=== PATIENT | male | born 1970 | race Caucasian/White ===

== ENCOUNTER 2020-05-04 07:59 | Emergency (ER) | payer OTHER ==
[~2020-05-04] VITALS: Ht 182.9 cm; Wt 106.6 kg
[~2020-05-04 07:59] MED LIST: HYDROCHLOROTHIA25 MG PO
[2020-05-04] MEDS ORDERED: MOTION SICKNESS25 M4 PO (08:16)
--- NOTE | 2020-05-04 09:32 | EKG ---
[facility] [address] [place], [place] [address] Signed Normal sinus rhythm Nonspecific ST and T wave abnormality Abnormal ECG No previous ECGs available Confirmed by SANCHEZ MALONEY MD ([id number]) on 05/04/2020 9:32:47 AM Electronically Signed By: SANCHEZ MALONEY MD 05/04/20 0932 PATIENT NAME: VINICIO YIMIRAMAN Electrocardiogram DATE OF : 70 PHYSICIAN: SANCHEZ MALONEY MD REPORT #: [id number] REPORT IS CONFIDENTIAL AND NOT TO BE RELEASED WITHOUT AUTHORIZATION
== END 2020-05-04 10:03 | disposition home or self-care (01) ==
LOC: ED 07:59
DX: K92.2 Gastrointestinal hemorrhage, unspecified (principal); R07.89 Other chest pain; D64.9 Anemia, unspecified; F17.200 Nicotine dependence, unspecified, uncomplicated; Z79.899 Other long term (current) drug therapy
CPT/HCPCS: 71045; 80053; 82728; 83540; 83735; 84466; 84484; 85025; 86850; 86900; 86901; 93005; 93010; 99285-25; 99406

== ENCOUNTER 2020-05-05 20:45 | Observation (INO) | payer OTHER ==
[~2020-05-05] VITALS: Ht 182.9 cm; Wt 105.2 kg
[~2020-05-05 20:45] MED LIST changes: +MOTION SICKNESS25 M4 PO
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
--- NOTE | 2020-05-06 01:45 | NUR ---
PATIENT ARRIVED TO THE FLOOR VIA STRETCHER. PATIENT AMBULATED FROM STRETCHER TO BED. ADMISSION COMPLETED BY THALIA BALDERAS. PATIENT DENIES ANY PAIN OR NAUSEA. PATIENTS ABD MILD DISTENDED PER PATIENT. PATIENT HAS NO ORDERS AT THIS TIME. PATIENTS IS PRESENT IN THE ROOM. NO NEEDS NOTED. THALIA RN REMAINS IN THE ROOM.
--- NOTE | 2020-05-06 02:24 | NUR ---
PLACED CALL TO MD. NEW ORDERS RECEIVED. VERIFIED NEW ORDERS USING THE READBACK METHOD. IV INFUSING PER ORDER. EDUCATED PATIENT ON DIET STATUS CHANGE. PATIENT VERBALIZES UNDERSTANDING. PATIENTS SCHEDULED MEDICATIONS GIVEN PER ORDER. NO FURTHER NEEDS NOTED. CALL LIGHT IN REACH.
--- NOTE | 2020-05-06 04:24 | NUR ---
PATIENT IS RESTING IN BED WITH EYES CLOSED, RR 19. CALL LIGHT IN REACH.
--- NOTE | 2020-05-06 05:02 | NUR ---
PATIENT HAS RESTED WELL SINCE ARRIVING TO THE FLOOR. PATIENT IS ON RA. PATIENT IS ON CLEARS, TOLERATING WELL, NO NAUSEA NOTED. PATIENT HAS DENIED PAIN. PATIENT IS INDEPDENT IN THE ROOM. PATIENT HAS HAD NO BMS. PATIENT HAS IV INFUSING PER ORDER. PATIENT IS AAOX4. [facility]
--- NOTE | 2020-05-06 05:18 | NUR ---
PATIENTS VITALS TAKEN AND RECORDED. INTAKE AND OUPUT RECORDED. PATIENT DENIES ANY PAIN OR NAUSEA. URINAL EMPTIED. WATER REFILLED. IS ASLEEP ON THE COUCH. PATIENT DENIES ANY NEEDS. CALL LIGHT IN REACH.
--- NOTE | 2020-05-06 07:13 | NUR ---
emptied urinal 900 ml. patient denies further needs at this time.
--- NOTE | 2020-05-06 07:30 | NUR ---
SHIFT REPORT FROM GHASSAN BALDERAS INCLUDED: pt here for rectal bleeding. pt able to rest most of the night. pts at bedside. pt has PRN meds availible. pt currently in bed, breathing even and unlabored. table and call light within reach.
--- NOTE | 2020-05-06 07:50 | NUR ---
Spoke with pt's SO and mom. He is sleeping. SO states they live in [place] in a 1 story home with 5 steps. No hand rails. He has not any problems with the steps. Does not use any DME. He is active and works at [employer] for the state of [employer]. Pt awakens and finishes answering questions. They do not have financial issues. He drives. He is awaiting a consult from Dr. De Luna. So other states pt 23 yo son is insisting he visit today. Updated he will not be let in. Explained [facility] rules and notified I can set them up with a tablet for face time. Pt states he will message son on face book and let him know he can visit tomorrow. Pt plans on dc to home when cleared medically.
[2020-05-06] MEDS ORDERED: ATORVASTATIN CA40 MG PO (08:20)
--- NOTE | 2020-05-06 09:15 | NUR ---
ROUNDING pt in bed, visiting with and mother at this time. table and call light within reach.
--- NOTE | 2020-05-06 10:10 | NUR ---
ASSESSMENT pt assessment complete, VSS. pt denies dizziness. pt verbalized understanding of making his doctors aware of things like this earlier in the future. pt denies pain and nausea at this time. pt in bed, table and call light within reach. and mother at bedside.
[2020-05-06] MEDS ORDERED: CLARITIN-D 241 EACH PO (10:21)
[2020-05-06] MEDS ORDERED: MELATONIN10 M5 PO (10:22)
[2020-05-06] MEDS ORDERED: ACETAMINOPHEN-1 EACH PO (10:22)
--- NOTE | 2020-05-06 10:23 | NUR ---
MED REC COMPLETE
--- NOTE | 2020-05-06 11:00 | NUR ---
ROUNDING pt finishing up his second bowel prep gatorade drink from pharmacy. pt instructed to call when he is able to have a BM and to not flush the toilet after, so we can assess and document it. pt agrees. pt denies pain and nausea at this time. pt in bed, table and call light within reach. and mother at bedside.
--- NOTE | 2020-05-06 12:00 | NUR ---
ROUNDING pt completed his bowel prep drinks, and ordered a clears tray for lunch, the kitchen was asked specifically to NOT include anything red or orange in color. pt denies needs at this time and denies pain and nausea. table and call light within reach.
--- NOTE | 2020-05-06 13:30 | NUR ---
ROUNDING pt visiting with his and mother at this time. pt denies pain and nausea at this time. pt denies needs. table and call light within reach.
--- NOTE | 2020-05-06 14:30 | NUR ---
SPOKE TO DR MALONEY AT THIS TIME + NEW ORDERS pt has been up to toilet x2 and had nannette red blood in the toilet in what might be moderate-large amounts. pt denies dizziness and has remained A&O x4, denying pain, nausea, and fatigue at this time. VSS. However, pt will likely be up to empty bowels more during the night due to bowel prep for tomorrow's procedures, so this RN requested H&H be drawn and tested sometime before tomorrow. Dr Maloney agreed and gave verbal orders to check labs tonight at 1800. orders put into the computer.
--- NOTE | 2020-05-06 14:49 | NUR ---
PT ALERT, ORIENTED AND SUPPORTED BY HIS MOTHER NICHOLE AND G.FRIEND JOSIAH. PT FEELS INFORMED, CLEAR BOUT SURGERY. AND SEEMS TO BE INFORMED. PT IS QUITE THE JOKESTER. PT FEELS INFORMED, ALL QUESTIONS ASKED ANSWERED GAVE BLESSING AND WILL FOLLOW
--- NOTE | 2020-05-06 15:30 | NUR ---
ROUNDING pt watching tv alone in the room at this time. pt denies pain and nausea at this time. pt denies needs. table and call light within reach.
--- NOTE | 2020-05-06 16:17 | NUR ---
MED PASS pt up to bathroom at this time. and mother no longer in the room at this time. pt back to bed. pt able to take med as ordered without difficulty. pt denies pain and nausea at this time. pt denies dizziness and has no obvious changes in LOC. pt in bed, table and call light within reach.
--- NOTE | 2020-05-06 16:19 | NUR ---
pt had bowel prep done today and completed both bottles. pt has been up to have BMs several times today. pt is independent in the room and has been denying dizziness. pt has been having nannette red blood in his stool for weeks now. pt has two units of PRBCs ordered and ready to go IF needed. pt getting another H&H lab at 1800 tonight to monitor labs. pt anticipating endoscopy and colonoscopy tomorrow. pt should be NPO at midnight, has been voiding sufficiently and tolerating clears diet today.
--- NOTE | 2020-05-06 16:21 | CONS ---
[facility] [address] [place], [place] [address] Signed DATE OF CONSULTATION: 05/06/2020 CHIEF COMPLAINT: Bright red blood per rectum. HISTORY OF PRESENT ILLNESS: Raman is a 49-year-old gentleman who lives in [place], [place]. 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 He said he has had rectal bleeding probably 6 months, but it has certainly gotten worse the last few weeks. He started to get dizzy and lightheaded. He came to emergency room two days ago for evaluation. He was given 2 units of packed red blood cells and asked to follow up with GI. He continued to have rectal bleeding and he feels like it is fairly significant, so he came back to the emergency room. His hemoglobin is currently 9.7. His mean cell volume is low at 77. BUN is normal at 17. Liver function test, INR and albumin all fine. COVID is negative. He describes a rectal exam by the ER doctor, but does not know any more than that. He has been admitted to the Internal Medicine Service. I have been asked to see him for consideration of upper and lower endoscopy after bowel prep today. In the meantime, he has remained hemodynamically stable. PAST MEDICAL HISTORY: Meniere disease, hemorrhoids and chronic constipation. PAST SURGICAL HISTORY: None. SOCIAL HISTORY: He quit smoking. He does not drink. He is to his , Alexandra at [phone]. He prefers the [facility] pharmacy. He does maintenance for the [employer]. They have three children. Myrtle Holden is his nurse practitioner in [place]. FAMILY HISTORY: His father of an PR at 45. His maternal uncle had rectal cancer. REVIEW OF SYSTEMS: He had 10 systems reviewed and there were no new findings. ALLERGIES: None. MEDICATIONS: Hydrochlorothiazide 25 mg p.o. p.r.n. and meclizine p.r.n. PHYSICAL EXAMINATION: Electronically Signed By: LUBNA SIMPSON MD 05/06/20 1621 PATIENT NAME: RAMAN MERRILL CONSULTATION DATE OF : 70 REPORT #: [id number] PHYSICIAN: LUBNA SIMPSON MD PCP: MYLES KIM MD REPORT IS CONFIDENTIAL AND NOT TO BE RELEASED WITHOUT AUTHORIZATION [facility] [address], [place] [address] Signed VITAL SIGNS: Blood pressure 139/86, heart rate 84, respiratory rate 20, temperature is 97.6. He is 100% on room air. He is 6 feet tall at 105 kg. GENERAL: Raman is a 49-year-old gentleman who appears healthy and at his stated age. His mother is in the room. He does not appear significantly ill or toxic. He is not pale. He has actually got good energy and is a good historian. LUNGS: Clear to auscultation bilaterally. HEART: Regular rate and rhythm without murmurs. ABDOMEN: Moderately protuberant and soft. RECTAL: Not repeated currently. LABORATORY DATA: His white blood count is 8.0, hemoglobin is up to 9.7 after 2 units of packed red blood cells, mean cell volume 77, platelets 325, BUN 17, creatinine 1.03. Liver function tests are negative, albumin 3.8. His coags are negative and the COVID test is negative. RADIOGRAPHIC STUDIES: None. ASSESSMENT/PLAN: Raman is a 49-year-old gentleman who presents with lifelong constipation and his maternal uncle had rectal cancer as well. Raman had rectal bleeding, it sounds like for at least 6 months, but certainly worse for the last few weeks. He has required a couple units of packed red blood cells. He has been admitted and was given IV fluids, clear liquid diet and his bowel prep. We will plan on adding him on tomorrow for his upper and lower endoscopies. I have reviewed upper and lower endoscopy with him in detail. His mother explained she has undergone colonoscopy and she is familiar with the process. We also reviewed the need for IV conscious sedation. They have expressed understanding and would like to proceed tomorrow. Lubna Simpson MD ALB/MODL /[id number] cc: WAYNE eBrg Copies: MYRTLE HOLDEN Electronically Signed By: LUBNA SIMPSON MD 05/06/20 1621 PATIENT NAME: RAMAN MERRILL CONSULTATION DATE OF : 70 REPORT #: [id number] PHYSICIAN: LUBNA SIMPSON MD PCP: MYLES KIM MD REPORT IS CONFIDENTIAL AND NOT TO BE RELEASED WITHOUT AUTHORIZATION [address] [address] Signed ~ Electronically Signed By: LUBNA SIMPSON MD 05/06/20 1621 PATIENT NAME: VINICIO YIMIRAMAN CONSULTATION DATE OF : 70 REPORT #: [id number] PHYSICIAN: LUBNA SIMPSON MD PCP: MYLES KIM MD REPORT IS CONFIDENTIAL AND NOT TO BE RELEASED WITHOUT AUTHORIZATION
--- NOTE | 2020-05-06 19:28 | NUR ---
in bed, awake, plasant, lab in oom, no c/o pain, aware of NPO after midnight. call light at bedside, fresh iced water and warm blanket given
--- NOTE | 2020-05-06 20:24 | NUR ---
COOP WITH ASSESSMENT, AWAKE, ALERT AND ORIENTED, NO RECTAL BLEEDING AT THIS TIME. CALLS APPROPRIATELY. TOLERATING LARGE AMOUNTS OF FLUIDS WELL, VOIDING QS. SL LAC AND IVF INFUSING RAC
--- NOTE | 2020-05-06 22:45 | NUR ---
IN TO CHECK ON PT, PT IS ADLIB IN RM/TO THE BM, NO FURTHER NEEDS
--- NOTE | 2020-05-07 00:22 | NUR ---
RESTING, TURNS SELF IN BED, IVF INFUSING, INDEPENDENT IN ROOM, HAD BROWN LIQUID BM, USES URINAL, VOIDING LARGE AMOUNTS OF CLEAR URINE. NPO AFTER MIFNIGHT. CALL LIGHT AT BEDSIDE
--- NOTE | 2020-05-07 02:10 | NUR ---
IN TO GET VITALS, PT STATES UP TO THE BR A FEW TIMES, PT BACK TO RESTING, NPO STATUS @ 0000, NO FURTHER NEEDS AT THIS TIME
--- NOTE | 2020-05-07 04:23 | NUR ---
AWAKES EASILY, NO C/O PAIN. ICE PACK FOR HEMORROIDS GIVEN ONREQUESTS, NPO SINCE MIDNIGHT, DOES OWN MOUTH CARE. VOIDING QS. IVF INFUSING, FEMALE WOLF IN ROOM
--- NOTE | 2020-05-07 06:03 | NUR ---
PT ALERT AND ORIENTED, INDEPENDENT IN ROOM. HAS HAD SEVERAL LIQUID BM, NO BLOOD NOTED THIS SHIFT. VOIDING QS. HAS BEEN NPO SINCE MIDNIGHT, DOES OWN MOUTH CARE. SL PATENT, IVF INFUSING W/O PROBLEMS. NO C/O N/V OR PAIN. ICE GIVEN ON REQUESTS TO BUTTOCKS AREA HE STATED 'I HAVE SOME REALLY BAD HEMORROIDS THAT THEY ARE CURRENLTY BOTHERING ME'. PT SCHEDULED TO HAVE AN EGD/COLONOSCOPY TODAY. FEMALE FRIEND IN ROOM
--- NOTE | 2020-05-07 06:20 | NUR ---
IN TO GET VITALS, PT REMAINS NPO STATUS AT THIS TIME, NO FURTHER NEEDS, RN IN RM TO SETUP PRE OP IV NEEDS,
--- NOTE | 2020-05-07 07:10 | NUR ---
SHIFT REPORT FROM KIRSTEN RN INCLUDED: pt had an uneventful evening. VSS, pt has been having several bowel movements, as expected after bowel prep. pt currently resting in bed, table and call light within reach. breathing even and unlabored.
--- NOTE | 2020-05-07 08:30 | NUR ---
ROUNDING pt in chair, watching tv at this time. pt denies needs. table and call light within reach.
--- NOTE | 2020-05-07 10:00 | NUR ---
ASSESSMENT + MED PASS pt in chair at this time. pt assessment complete, VSS. pts last 5 or so BMs have been brown and without nannette red blood in them according to pt. pt able to get one med as ordered, no difficulty. pt given ice pack for his bottom where he reports he is sore. pt in chair, with ice and pillows for comfort, table and call light within reach.
--- NOTE | 2020-05-07 10:30 | NUR ---
Spoke with pt and SO. They deny needs. Cont. to plan on dc to home.
--- NOTE | 2020-05-07 11:14 | NUR ---
ROUNDING pt in chair, visiting with at this time. pt denies pain and nausea. table and call light within reach.
--- NOTE | 2020-05-07 11:50 | NUR ---
PATIENT OFF THE UNIT FOR IMAGING AT THIS TIME
--- NOTE | 2020-05-07 12:43 | NUR ---
PT ALERT, ORIENTED AND VISITING WITH HIS G.FRIEND. PT IS TO HAVE EGD AND SCOPE LATER THIS PM. PT UPBEAT, ALL QUESTIONS ASKED ANSWERED. PT OKAY IF HE HAS TO GO STRAIGHT TO SURGERY FROM SCOPES. PT REQUESTED PRAYER, WILL FOLLOW
--- NOTE | 2020-05-07 13:08 | NUR ---
05/07/20 1308 Radha Alvarado 1304- PT ARRIVES TO PACU NONAROUSABLE TO NOXIOUS STIMULI WITH AN OPA IN PLACE. RESP EVEN AND UNLABORED. OXYGEN SAT HIGH 90'S TO 100% ON 10L VIA MASK. PT PASSING LARGE AMOUNTS OF FLATUS. 1308- OXYGEN TITRATED DOWN TO 6L VIA MASK.
--- NOTE | 2020-05-07 13:40 | NUR ---
PATIENT ARRIVES BACK TO THE FLOOR AT THIS TIME pt back in room, and steady gait and ambulatory. pt VSS. pt denies pain and nausea at this time. pt in chair, table and call light witin reach.
[2020-05-07] MEDS ORDERED: PANTOPRAZOLE SO40 MG PO (14:51)
[2020-05-07] MEDS ORDERED: PROCTO-MED HC28 GM TOP (14:53)
--- NOTE | 2020-05-07 15:00 | NUR ---
PATIENT DC AT THIS TIME pt VSS, denies pain and nausea at this time. pt IVs pulled, catheters intact, no excess bleeding noted. pt and verbalize understanding of DC instructions, meds, and follow up care plans. pharmacy meeting with pt at this time.
--- NOTE | 2020-05-07 15:44 | OR ---
[facility] [address] [place], [place] [address] Signed DATE OF OPERATION: 05/07/2020 SURGEON: Lubna Simpson MD PREOPERATIVE DIAGNOSES: 1. Rectal bleeding. 2. Maternal uncle with rectal cancer. 3. Anemia. POSTOPERATIVE DIAGNOSES: 1. Pyloric bulb/duodenal ulcer x2 (nonbleeding), [id number] gastroduodenitis. 2. Small hiatal hernia. 3. Possible colitis (35 cm -- anus). 4. Large irritated left external hemorrhoid. PROCEDURES: 1. EGD with CLOtest and biopsies of the pyloric bulb and antrum. 2. Colonoscopy with random cold biopsies. ESTIMATED BLOOD LOSS: None. FINDINGS: Raman clearly had a large external hemorrhoid that is irritated and we can see where it has been bleeding on the side. In addition, he also had 2 small nonbleeding ulcers in his pyloric bulb. 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 He is and has 3 children. No one else seems to be sick. He has had rectal bleeding now for about 6 months. Last a few weeks, he seems to be getting progressively worse. It seems to be bright red. He really does not have any specific upper or lower GI complaints, other than his painless bleeding. He also has maternal uncle with rectal cancer. He finally came to emergency room for evaluation when he started to feel a little weak, fatigued, and dizzy. He had been anemic and received 2 units of packed red blood cells. He was allowed to go home and was asked to follow up with his primary care provider as well as GI. He came back a day later with continued rectal bleeding. He was therefore admitted to the Internal Medicine Service. His hemoglobin was 9.7 with a mean cell volume of 77. The BUN was normal at 17. Liver function tests were fine. COVID test was negative. Albumin was Electronically Signed By: LUBNA SIMPSON MD 05/07/20 1544 PATIENT NAME: RAMAN MERRILL OPERATIVE REPORT DATE OF : 70 REPORT #: [id number] PHYSICIAN: LUBNA SIMPSON MD PCP: MYLES KIM MD REPORT IS CONFIDENTIAL AND NOT TO BE RELEASED WITHOUT AUTHORIZATION [facility] [address] [place], [place] [address] Signed good at 3.8. He said he does not drink. He quit smoking. He did not mention any aspirin or NSAIDs. I have been asked to see him as a general surgeon on-call for upper and lower endoscopy. He has been hemodynamically stable here in the hospital. He has gone through his bowel prep. His hemoglobin has remained stable as well. I met with Raman and reviewed both upper and lower endoscopy with him. He understands there is risk including, but not limited to gas bloating, crampy abdominal pain, bleeding, perforation requiring surgery, and missed diagnosis. He also understands the need for IV conscious sedation. He had expressed understanding and wished to proceed. PROCEDURE NOTE: Raman was taken into our endoscopy suite and placed in a supine semi-recumbent position. He was given IV propofol per our nurse relationship specialist. He seemed to take quite a bit of propofol. We always liked our Anesthesia providers in these acute situations. A bite block was utilized for the case. The adult gastroscope was introduced and advanced out into the 3rd portion of the duodenum under direct visualization of the camera without difficulty. The duodenum was unremarkable. The pyloric channel showed irritation and 2 nonbleeding shallow ulcers. We took a biopsy from the pyloric channel for pathologic review. Back in the stomach, he also has mild diffuse erythematous changes throughout. We took a biopsy out of the antrum for pathologic review as well as CLOtest. Upon retroflexion of the scope, it looks like he prior has just a very small hiatal hernia. There were no gastric or esophageal varices. The scope had been withdrawn up through the area of GE junction, which was compliant without stricture. Really, no disruption to his Z-line. Certainly, no Anthony's mucosa, no distal esophagitis. The middle and upper esophagus were unremarkable. After this, the gas had been suctioned out and the gastroscope removed. Raman had tolerated the upper endoscopy quite well. Raman was rotated into the left lateral decubitus position. He was maintained on his IV sedation with propofol per our nurse relationship specialist. A digital rectal exam was performed. He does have a large pedunculated external hemorrhoid. With gentle traction, the medial side of the hemorrhoids irritated. We can see the blood clot on the surface there where it has been bleeding. It is not bleeding at this time. He had good sphincter tone. No masses noted. The adult colonoscope had been introduced and advanced all the way into the distal portion of the right colon. Unfortunately, his bowel prep was below average. Even with abdominal compression, we could not get the scope to advance any further due to the bowel prep. We could see the ileocecal valve. We could not see behind it. We noticed on our way and that he had what appears to be mild inflammatory changes from the anus up to about 35 cm. The rest of the colon seemed to be fine. We went ahead and took random biopsies throughout the entire colon including 35 cm and then down to just above the anus in the rectum. No obvious diverticulosis. No polyps that we could see. Unfortunately, he would need a much better bowel prep in that regard. After this, the gas had been suctioned out and the gastroscope removed. Raman tolerated the procedure quite well. Electronically Signed By: LUBNA SIMPSON MD 05/07/20 1544 PATIENT NAME: RAMAN MERRILL OPERATIVE REPORT DATE OF : 70 REPORT #: [id number] PHYSICIAN: LUBNA SIMPSON MD PCP: MYLES KIM MD REPORT IS CONFIDENTIAL AND NOT TO BE RELEASED WITHOUT AUTHORIZATION [facility] [address] [place], [place] [address] Signed RECOMMENDATIONS: I will see Raman back in my office in a week or so after discharge for followup. He might consider a repeat colonoscopy with a better bowel prep depending on the pathology results. Lubna Simpson MD ALB/MODL /[id number] cc: Chart Filed Incomplete MD Myrtle Lobo FNP Copies: CHART FILED INCOMPLETE LUBNA SIMPSON MD, DAWN FNP ~ Electronically Signed By: LUBNA SIMPSON MD 05/07/20 1544 PATIENT NAME: RAMAN MERRILL OPERATIVE REPORT DATE OF : 70 REPORT #: [id number] PHYSICIAN: LUBNA SIMPSON MD PCP: MYLES KIM MD REPORT IS CONFIDENTIAL AND NOT TO BE RELEASED WITHOUT AUTHORIZATION
--- NOTE | 2020-05-12 16:52 | PATH ---
[facility] [address] [place], [place] [address] Signed THIS IS AN ADDENDUM REPORT SPECIMEN(S): A DUODENUM BULB SPECIMEN(S): B ANTRUM/PYLORUS SPECIMEN(S): C ASCENDING SPECIMEN(S): D TRANSVERSE SPECIMEN(S): E DESCENDING SPECIMEN(S): F COLON 35 CM SPECIMEN(S): G COLON 25 CM SPECIMEN(S): H COLON 12 CM SPECIMEN(S): I COLON 6 CM SPECIMEN SOURCE: A. DUODENUM BULB B. ANTRUM/PYLORUS C. ASCENDING D. TRANSVERSE E. DESCENDING F. COLON 35 CM G. COLON 25 CM H. COLON 12 CM I. COLON 6 CM CLINICAL HISTORY: Pre-op: GI bleed, family history rectal ca, chronic constipation. Post-op: Duodenitis, external hemorrhoids, possible colitis. Anemia/GI bleed. MICROSCOPIC DESCRIPTION: Histologic sections of all submitted blocks are examined by light microscopy. These findings, together with the gross examination, support the pathologic diagnosis. FINAL PATHOLOGIC DIAGNOSIS: A. Duodenal bulb, biopsy: - Peptic duodenitis. - Negative for Helicobacter organisms on HE stain, see comment. - Negative for dysplasia or malignancy. B. Stomach, antrum/pylorus, biopsy: - Antral mucosa with chronic, inactive gastritis. - Negative for Helicobacter organisms on HE stain, see comment. - Negative for dysplasia or malignancy. PATIENT NAME: RAMAN MERRILL PATHOLOGY DATE OF : 70 REPORT #: [id number] PHYSICIAN: [facility] PATHOLOGY PCP: MYLES KIM MD REPORT IS CONFIDENTIAL AND NOT TO BE RELEASED WITHOUT AUTHORIZATION [facility] [address] [place], [place] [address] Signed C. Colon, ascending, biopsy: - Colonic mucosa with no histopathologic abnormality. - Negative for active, chronic, or microscopic colitis. - Negative for dysplasia or malignancy. D. Colon, transverse, biopsy: - Colonic mucosa with no histopathologic abnormality. - Negative for active, chronic, or microscopic colitis. - Negative for dysplasia or malignancy. E. Colon, descending, biopsy: - Colonic mucosa with no histopathologic abnormality. - Negative for active, chronic, or microscopic colitis. - Negative for dysplasia or malignancy. F. Colon, 35 cm, biopsy: - Chronic active colitis. - Negative for granulomas, dysplasia, or malignancy. G. Colon, 25 cm, biopsy: - Chronic, active colitis. - Negative for granulomas, dysplasia, or malignancy. H. Colon, 12 cm, biopsy: - Focal active colitis. - Negative for granulomas, dysplasia, or malignancy. I. Colon, 6 cm, biopsy: - Colonic mucosa with no histopathologic abnormality. - Negative for active, chronic, or microscopic colitis. - Negative for dysplasia or malignancy. COMMENT: Regarding specimens A and B: An H. pylori immunohistochemical stain is pending and will be reported in an addendum. Regarding specimens F-H: Sections of the colon biopsies at 35 and 25 cm are similar and demonstrate lamina propria lymphoplasmacytosis, crypt architectural distortion, Paneth cell metaplasia, and cryptitis. The colon biopsy at 12 cm demonstrates focal cryptitis without evidence of chronicity. No granulomas are identified. Viral cytopathic changes and infectious organisms are not seen on HE stain. The findings raise the possibility of inflammatory bowel disease, and given the skip nature of the lesion, Crohn's disease is favored. The differential diagnosis does include infectious etiologies. If this is a first time diagnosis, additional clinical correlation is required. As part of [employer] [facility]' Quality Improvement Program, selected slides PATIENT NAME: RAMAN MERRILL PATHOLOGY DATE OF : 70 REPORT #: [id number] PHYSICIAN: [facility]O PATHOLOGY PCP: MYLES KIM MD REPORT IS CONFIDENTIAL AND NOT TO BE RELEASED WITHOUT AUTHORIZATION [facility] [address] [place], [place] [address] Signed from this case were reviewed by another member of our pathology staff. NAL:NRT:cml:C2NR GROSS DESCRIPTION: Nine specimens are received in nine containers, labeled "MV." A. The specimen, labeled "MV, duodenal bulb biopsy," is received in formalin and consists of one hahn soft tissue fragment that measures 0.2 cm in greatest dimension. The specimen is entirely submitted in cassette (A1). B. The specimen, labeled "MV, antrum biopsy," is received in formalin and consists of one hahn soft tissue fragment that measures 0.4 cm in greatest dimension. The specimen is entirely submitted in cassette (B1). C. The specimen, labeled "MV, ascending colon biopsy," is received in formalin and consists of one hahn soft tissue fragment that measures 0.2 cm in greatest dimension. The specimen is entirely submitted in cassette (C1). D. The specimen, labeled "MV, transverse colon biopsy," is received in formalin and consists of one hahn soft tissue fragment that measures 0.2 cm in greatest dimension. The specimen is entirely submitted in cassette (D1). E. The specimen, labeled "MV, descending colon biopsy," is received in formalin and consists of one hahn soft tissue fragment that measures 0.4 cm in greatest dimension. The specimen is entirely submitted in cassette (E1). F. The specimen, labeled "MV, colon biopsy at 35 cm," is received in formalin and consists of one hahn soft tissue fragment that measures 0.2 cm in greatest dimension. The specimen is entirely submitted in cassette (F1). G. The specimen, labeled "MV, colon biopsy at 25 cm," is received in formalin and consists of one hahn soft tissue fragment that measures 0.2 cm in greatest dimension. The specimen is entirely submitted in cassette (G1). H. The specimen, labeled "MV, colon biopsy at 12 cm," is received in formalin and consists of one hahn soft tissue fragment that measures 0.2 cm in greatest dimension. The specimen is entirely submitted in cassette (H1). I. The specimen, labeled "MV, colon biopsy at 6 cm," is received in formalin and consists of one hahn soft tissue fragment that measures 0.2 cm in greatest dimension. The specimen is entirely PATIENT NAME: RAMAN MERRILL PATHOLOGY DATE OF : 70 REPORT #: [id number] PHYSICIAN: MAO PEGUERO PCP: MYLES KIM MD REPORT IS CONFIDENTIAL AND NOT TO BE RELEASED WITHOUT AUTHORIZATION [address] [address] Signed submitted in cassette (I1). JS (under the direct supervision of a pathologist) The Gross Description was prepared using a voice recognition system. The report was reviewed for accuracy; however, sound-alike word errors, addition and/or deletions may occur. If there is any question about this report, please contact Client Services. PERFORMING LABORATORY: The technical component was performed by [facility], [address] [place] [id number] (Cloth Winder Machine Operator: Shalonda Olguin MD; CLIA# [id number]). [facility], [address] [place] [address] (CLIA# [id number]). ADDITIONAL NOTES: Immunohistochemical and/or in situ hybridization studies were performed on this case with the appropriate positive controls that react as expected. This test was developed and its performance characteristics determined by [facility]. It has not been cleared or approved by the U.S. Food and Drug Administration. The FDA has determined that such clearance or approval is not necessary. This test is used for clinical purposes. It should not be regarded as investigational or for research. [facility] is certified under the Clinical Laboratory Improvement Amendments of 1988 (CLIA) as qualified to perform high complexity clinical laboratory testing. This assay has not been validated for specimens that have been decalcified. REASON FOR ADDENDUM: To add results of additional testing. ADDENDUM PATHOLOGIC DIAGNOSIS: Regarding specimens A and B: H. pylori immunohistochemical stains (with appropriately staining controls) are negative for Helicobacter organisms. NAL:cml To include further information regarding the differential diagnosis. ADDENDUM COMMENT: Regarding specimens F-H: Not previously mentioned is that the differential diagnosis also includes diverticular disease-related colitis (in the presence of diverticulosis). Correlation with colonoscopic findings is recommended. NAL:cml PATIENT NAME: RAMAN MERRILL PATHOLOGY DATE OF : 70 REPORT #: [id number] PHYSICIAN: [facility] PCP: MYLES KIM MD REPORT IS CONFIDENTIAL AND NOT TO BE RELEASED WITHOUT AUTHORIZATION [facility] [address] [place], [place] [address] Signed Diagnostician: Tiff Fernandez MD Pathologist Electronically Signed 05/12/2020 Copies: ~ PATIENT NAME: RAMAN MERRILL PATHOLOGY DATE OF : 70 REPORT #: [id number] PHYSICIAN: [facility] PCP: MYLES KIM MD REPORT IS CONFIDENTIAL AND NOT TO BE RELEASED WITHOUT AUTHORIZATION
== END 2020-05-07 15:35 | disposition home or self-care (01) ==
LOC: ED 20:45 → CCU 20:47 → MS 20:47 → CCU 20:47 → MS 05-06 01:01
PROVIDERS: Colon & Rectal Surgery; ADMIT Internal Medicine; ATTEND Internal Medicine
PROC: 0DBK8ZX Excision of Ascending Colon, Via Natural or Artificial Opening Endoscopic, Diagnostic (ICD-10-PCS; 2020-05-07)
PROC: 0DBL8ZX Excision of Transverse Colon, Via Natural or Artificial Opening Endoscopic, Diagnostic (ICD-10-PCS; 2020-05-07)
PROC: 0DBM8ZX Excision of Descending Colon, Via Natural or Artificial Opening Endoscopic, Diagnostic (ICD-10-PCS; 2020-05-07)
PROC: 0DB78ZX Excision of Stomach, Pylorus, Via Natural or Artificial Opening Endoscopic, Diagnostic (ICD-10-PCS; principal; 2020-05-07 14:00)
PROC: 0DBE8ZX Excision of Large Intestine, Via Natural or Artificial Opening Endoscopic, Diagnostic (ICD-10-PCS; 2020-05-07 14:00)
DX: K62.5 Hemorrhage of anus and rectum (principal); K64.4 Residual hemorrhoidal skin tags; K29.90 Gastroduodenitis, unspecified, without bleeding; K52.9 Noninfective gastroenteritis and colitis, unspecified; D50.0 Iron deficiency anemia secondary to blood loss (chronic); K44.9 Diaphragmatic hernia without obstruction or gangrene; H81.09 Meniere's disease, unspecified ear; F17.220 Nicotine dependence, chewing tobacco, uncomplicated; Z80.0 Family history of malignant neoplasm of digestive organs; Z20.822 Contact with and (suspected) exposure to COVID-19
CPT/HCPCS: 36415; 80053; 83735; 85025; 85027; 85610; 85730; 86677; 86850; 86900; 86901; 86920; 96374; 96376; 99285; C9113; C9803; G0378; J2704; J7121; U0003

== ENCOUNTER 2021-07-08 13:16 | Emergency (ER) | payer OTHER ==
[~2021-07-08] VITALS: Ht 182.9 cm; Wt 105.7 kg
[~2021-07-08 13:16] MED LIST changes: +ACETAMINOPHEN-1 EACH PO; +ATORVASTATIN CA40 MG PO; +CLARITIN-D 241 EACH PO; +MELATONIN10 M5 PO; +PANTOPRAZOLE SO40 MG PO; +PROCTO-MED HC28 GM TOP
== END 2021-07-08 18:04 | disposition home or self-care (01) ==
LOC: ED 13:16
DX: K92.2 Gastrointestinal hemorrhage, unspecified (principal); D64.9 Anemia, unspecified; Z87.891 Personal history of nicotine dependence; Z79.899 Other long term (current) drug therapy
CPT/HCPCS: 36415; 36430; 80053; 85025; 86850; 86900; 86901; 86922; 99284-25; P9016

== ENCOUNTER 2022-12-29 13:40 | Emergency (ER) | payer OTHER ==
[~2022-12-29] VITALS: Ht 182.9 cm; Wt 103.4 kg
--- OUTSIDE RECORDS SUMMARY | ~2022-12-29 | XMS | Continuity of Care Document ---
Demographics + + + | Address | [address] | | | [place] [address] | + + + | Preferred Language | Unknown | + + + | Marital Status | | + + + | [employer] Affiliation | Unknown | + + + | Race | White | + + + | Ethnic Group | Not or | + + + Author + + + | Author | [facility] | + + + | Organization | [facility] | + + + | Address | [address] | | | [place], [place] [address] | + + + | Phone | | + + + Care Team Providers + + + + | Care User Interface Artist Name | Role | Phone | + + + + Unavailable | Unavailable | + + + + Unavailable | Unavailable | + + + + Allergies No information. Encounters No information. Functional Status No information. Immunizations No information. Medications + + + + | date | description | facility | + + + + | 2022-11-07 00:00 | Mesalamine 1.2 GM Oral | [facility] | | | Tablet Delayed Release | | + + + + | 2022-11-07 00:00 | mesalamine 1200 MG Delayed | [facility] | | | Release Oral Tablet | | + + + + Problems No information. Procedures No information. Results/Labs +--------+--------+ +---------+--------+---------+ | test | date | facility | value | unit | notes | +--------+--------+ +---------+--------+---------+ + + | Result panel 1 | + + + + + + + + + | No Results | (no date) | [facility] | No Results | (missing) | (missing) | | [facility] | [facility] | | | | + + + + + + + Social History +--------+ + + | date | description | facility | +--------+ + + Vital Signs + + + + + | date | measurement | value | units | + + + + + | 2022-11-07 00:00 | BP_diastolic | 84 | mmHg | + + + + + | 2022-11-07 00:00 | BP_systolic | 122 | mmHg | + + + + + | 2022-11-07 00:00 | heart_rate | 1|1| | completed | + + + + + | 2022-11-07 00:00 | heart_rate | 85 | /min | + + + + + | 2022-11-07 00:00 | o2_saturation | 98 | % | + + + + + | 2022-11-07 00:00 | temperature_metric | 36.28 | C | | | | | | + + + + + | 2022-11-07 00:00 | | 97.3 | F | | | temperature_standar | | | | | d | | | + + + + + | 2022-11-07 00:00 | weight_metric | 102.33 | kg | + + + + + | 2022-11-07 00:00 | weight_standard | 225.6 | lb | + + + + +"
[2022-12-29 14:31] LABS: BASOPHILS 0.7 % (0-2); EOSINOPHILS 2.9 % (0-6); HEMATOCRIT 25.7 % (35.0-50.0); HEMOGLOBIN 7.6 g/dL (12.0-18.0); MCH 18.3 (27-36); MCHC 29.6 g/dl (30-36); MCV 61.9 fl (81-99); MONOCYTES 9.2 % (0-12); NEUTROPHILS 63.2 % (39-80); PLATELET COUNT 414 K/uL (140-440); RBC 4.15 M/ul (4.3-5.7); RDW 18.4 (10.5-15.0)
[2022-12-29 14:40] LABS: ALBUMIN 3.1 g/dL (3.4-5.0); ALBUMIN/GLOBULIN RATIO 0.72 (1.1-2.4); ANION GAP 10.3 (7-21); BILIRUBIN, TOTAL 0.2 ng/dL (0.2-1.0); BUN/CREATININE RATIO 8.19 (6.0-28.6); CALCIUM 8.4 mg/dL (8.5-10.1); CREATININE, SERUM 1.22 mg/dL (0.70-1.30); POTASSIUM 4.3 mmol/L (3.5-5.1); PROTEIN, TOTAL 7.4 g/dL (6.4-8.2)
[2022-12-29 15:19] LABS: ABO A; ANTIBODY SCREEN NEGATIVE; RH POSITIVE
[2022-12-29] MEDS ORDERED: BUDESONIDE EC3 M1 PO (15:56)
[2022-12-29 16:29] VITALS: BP 132/84
[2022-12-31 09:51] LABS: IRON BINDING CAPACITY TOTAL 443 ug/dL (240-450); IRON,SERUM OR PLASMA 14 ug/dL (45-182); TRANSFERRIN SATURATION 3 %sat (20-50)
== END 2022-12-29 16:15 | disposition home or self-care (01) ==
LOC: ED 13:40
PROVIDERS: Emergency Medicine
DX: D50.0 Iron deficiency anemia secondary to blood loss (chronic) (principal); Z87.891 Personal history of nicotine dependence
CPT/HCPCS: 36415; 80053; 83036; 83550; 85025; 85060; 86850; 86900; 86901; 99283

== ENCOUNTER 2023-01-15 18:26 | Emergency (ER) | payer OTHER ==
[~2023-01-15] VITALS: Ht 182.9 cm; Wt 98.0 kg
[~2023-01-15 18:26] MED LIST changes: +BUDESONIDE EC3 M1 PO
--- OUTSIDE RECORDS SUMMARY | 2023-01-15 18:32 | XMS ---
PreManage Notification: RAMAN MERRILL Security [place] Events No recent Security Events currently on file CRITERIA MET - [facility] - 2 Visits in 30 Days CARE PROVIDERS MYLES KIM [facility] 05/07/2020-Current PHONE: [phone] [facility] Current HEALTH PHONE: [phone] Myrtle Holden Nurse Practitioner: Family Current PHONE: Unknown Oral has no Care Guidelines for this patient. E.D. VISIT COUNT (12 MO.) 3 [facility] TOTAL 3 NOTE: Visits indicate total known visits. ED/UCC VISIT TRACKING (12 MO.) 01/15/2023 18:26 [facility] TYPE: Emergency COMPLAINT: - BLOOD IN STOOL 12/29/2022 13:41 [facility] TYPE: Emergency COMPLAINT: - FATIGUE, COLD, RECTAL BLEEDING DIAGNOSES: - Hemorrhage of anus and rectum - Iron deficiency anemia secondary to blood loss (chronic) - Personal history of nicotine dependence 11/06/2022 15:[address] [facility] TYPE: Emergency COMPLAINT: - ABDOMINAL PAIN DIAGNOSES: - Hyperglycemia, unspecified - Other specified abnormal findings of blood chemistry - Personal history of nicotine dependence - Unspecified abdominal pain INPATIENT VISIT TRACKING (12 MO.) No inpatient visits to display in this time frame [email or web address]
[2023-01-15 18:55] LABS: BASOPHILS 0.9 % (0-2); EOSINOPHILS 5.4 % (0-6); HEMOGLOBIN 7.1 g/dL (12.0-18.0); LYMPHOCYTES 22.7 % (24-44); MCH 18.7 (27-36); MCHC 29.6 g/dl (30-36); MONOCYTES 9.1 % (0-12); NEUTROPHILS 61.9 % (39-80); PLATELET COUNT 485 K/uL (140-440); RBC 3.81 M/ul (4.3-5.7); RDW 20.9 (10.5-15.0)
[2023-01-15 19:08] LABS: INR 1.01 (0.80-1.30); PARTIAL THROMBOPLASTIN TIME 29.9 Sec (22.9-41.3); PROTIME 12.8 Sec (11.2-14.2)
[2023-01-15 19:12] LABS: ALBUMIN 3.1 g/dL (3.4-5.0); ALBUMIN/GLOBULIN RATIO 0.86 (1.1-2.4); ANION GAP 12.8 (7-21); BILIRUBIN, TOTAL 0.2 ng/dL (0.2-1.0); BUN/CREATININE RATIO 9.73 (6.0-28.6); CALCIUM 8.1 mg/dL (8.5-10.1); CREATININE, SERUM 1.13 mg/dL (0.70-1.30); POTASSIUM 3.8 mmol/L (3.5-5.1); PROTEIN, TOTAL 6.7 g/dL (6.4-8.2)
[2023-01-15 19:48] LABS: ABO A; ANTIBODY SCREEN NEGATIVE; RH POSITIVE
[2023-01-15 20:01] LABS: IS CROSSMATCH COMPATIBLE
[2023-01-16 02:07] VITALS: BP 118/84
== END 2023-01-16 02:09 | disposition home or self-care (01) ==
LOC: ED 18:26
PROVIDERS: Emergency Medicine; Internal Medicine
DX: D50.0 Iron deficiency anemia secondary to blood loss (chronic) (principal); K51.911 Ulcerative colitis, unspecified with rectal bleeding; K64.9 Unspecified hemorrhoids; Z87.891 Personal history of nicotine dependence
CPT/HCPCS: 36415; 80053; 83880; 84484; 85014; 85018; 85025; 85060; 85610; 85730; 86850; 86900; 86901; 86922; 99284; P9016